=== PATIENT | male | born 1980 | race Caucasian/White ===

== ENCOUNTER 2024-02-25 19:08 | Inpatient (IN) | payer SELFPAY ==
[2024-02-25 19:27] VITALS: BP 126/81; PULSE 91; RESP 16; O2SAT 98; BMI 32.5
--- NOTE | 2024-02-25 20:08 | PC.NURSE ---
at person search patient requested to keep own underwear t/w searched by hand for contraband, returned to client.
--- NOTE | 2024-02-25 20:09 | PC.NURSE ---
patient had pile of folded papers he wanted to keep which t/w had concerns of exposing staff to hazards by the sheer number of folded papers inside, offered to have numbers copied and patient did not like this optiion. patient then asked to leave and the patient was told that since he had expressed SI the provider would have to dc.
--- NOTE | 2024-02-25 20:28 | ED_ITS ---
HPI - General Adult General Chief complaint: Psychiatric Symptoms Stated complaint: crisis Time Seen by Provider: 02/25/24 20:18 Source: patient Mode of arrival: ambulatory Limitations: no limitations History of Present Illness ED Provider: Betty WHITNEY HPI narrative: 43 year old M with psychiatric history presenting with concerns of suicidal ideation over the past 3 days following recent suicide of his mother. Pt is from [place] and has a few close friends there, but states his brother is incarcerated and his sister is not in contact with him. He admits to recent suicide attempt. Pt has been sober from alcohol for 23 years and smokes a pack of cigarettes/day, does not use drugs. 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 He is mainly concerned stating he does not want to miss a dose of his medications while here. Related Data Home Medications ?Medication ?Instructions ?Recorded ?Confirmed Seroquel 800 mg PO BEDTIME 02/25/24 02/25/24 atorvastatin 20 mg PO BEDTIME 02/25/24 02/25/24 prazosin 2 mg capsule 4 mg PO BEDTIME 02/25/24 02/25/24 trazodone 200 mg PO BEDTIME 02/25/24 02/25/24 Allergies Allergy/AdvReac Type Severity Reaction Status Date / Time diphenhydramine Allergy Itching Verified 02/25/24 19:33 [From Benadryl] fish derived [fish] Allergy Angioedema Verified 02/25/24 19:33 haloperidol [From Haldol] Allergy Angioedema Verified 02/25/24 19:33 hydroxyzine [From Vistaril] Allergy Itching Verified 02/25/24 19:33 ibuprofen Allergy Angioedema Verified 02/25/24 19:33 Iodinated Contrast Media Allergy Angioedema Verified 02/25/24 19:33 ketorolac [From Toradol] Allergy Angioedema Verified 02/25/24 19:33 mushroom Allergy Angioedema Verified 02/25/24 19:33 Penicillins Allergy Angioedema Verified 02/25/24 19:33 Review of Systems 2 Review of Systems: Yes all other systems are reviewed and are negative PMFSH Past Medical History Attestation statement: The following information was validated with the patient. Source: old records reviewed and nursing notes reviewed Social History Social History Smoked in Last 30 Days: No Use of substances other than those prescribed or required for medical reasons: No Advance Directives: No Advance Directives Information Provided: No Do you have a plan to hurt others: No Plan Physical Exam ED Vital Signs: Vital Signs - 24 hr 02/25/24 19:27 02/25/24 23:17 02/26/24 10:40 Temperature 97.7 F 97.9 F Pulse Rate 91 83 75 Respiratory Rate 16 17 14 Blood Pressure 126/81 153/85 H 109/71 Pulse Oximetry 98 97 95 Oxygen Delivery Method Room Air Room Air Room Air BMI result Body Mass Index 32.5 VSS Appearance: Alert.? Oriented X3.? No acute distress.? Head: Normocephalic, atraumatic, no step-offs or deformities Eyes: Pupils equal, round and reactive to light.? Neck: Normal inspection.? Neck supple.? CVS: Normal heart rate and rhythm.? Pulses normal.? Respiratory: No respiratory distress.? Breath sounds normal.? Abdomen: Soft and nontender.? Skin: Skin warm and dry.? Normal skin color.? Normal skin turgor.? Neuro: Oriented X 3.? No motor deficit.? No sensory deficit. CN 2-12 intact Course Reevaluation(s) Reevaluation #1: CBC unremarkable. Chemistry no acute findings needing intervention. Salicylates acetaminophen ethanol negative. Urine toxicology negative. At this time patient to be placed into observation to allow more time to be evaluated by behavioral health team. At time observation was started patient common cooperative no acute distress will continue to monitor Patient to be on a section 12 at this time for safety sign by doctors Yanet Time: 22:23 Reevaluation #2: Physician observation continued. no acute events overnight, VS stable. S12 inpatient bed search. REESE 02/26/24 725am Reevaluation #3: observation care revealed that the patient does meet psychiatric necessity for hospitalization. final disposition discussed with the patient. The patient completed observation care at 135pm REESE Medications Administered Generic Name Dose Route Start Last Admin Trade Name Freq PRN Reason Stop Dose Admin Atorvastatin Calcium 20 mg 02/25/24 23:15 02/25/24 23:40 Atorvastatin Calcium 20 Mg Tablet PO 20 mg BEDTIME DIMITRI Administration Prazosin HCl 4 mg 02/25/24 23:15 02/25/24 23:40 Prazosin Hcl 1 Mg Capsule PO 4 mg BEDTIME DIMITRI Administration Protocol Quetiapine Fumarate 800 mg 02/25/24 23:15 02/25/24 23:40 Quetiapine Fumarate 400 Mg Tablet PO 800 mg BEDTIME DIMITRI Administration Trazodone HCl 200 mg 02/25/24 23:15 02/25/24 23:40 Trazodone Hcl 100 Mg Tablet PO 200 mg BEDTIME DIMITRI Administration Medical Decision Making Medical Decision Making [facility] Narrative: 43 year old M presenting with concerns of suicidal ideation for past 3 days. PE - benign Hx and pe concerns for suicidal ideation vs depression vs anxiety. Unlikely schizophrenia, ptsd, drug intoxication. Do not suspect acute metabolic derangement Plan - labs, urine Differential Diagnosis Differential Diagnoses: The differential diagnosis associated with the presentation includes Hx and pe concerns for suicidal ideation vs depression vs anxiety. Unlikely schizophrenia, ptsd, drug intoxication. Do not suspect acute metabolic derangement Admission/Observation Consideration of admission/observation: Escalation of care including admission/observation considered No indication Lab Data [facility] Lab Attestation statement: I reviewed the patient's lab results. 02/25/24 20:52 02/25/24 20:52 Labs: Lab Results 02/25/24 02/25/24 Range/Units 20:39 20:52 WBC 5.2 (4.8-10.8) X10*3/uL RBC 5.06 (4.60-5.80) X10*6/uL Hgb 15.1 (14.0-18.0) g/dl Hct 42.7 (42.0-52.0) % MCV 84.4 (80.0-98.0) fL MCH 29.8 (27.0-33.0) pg MCHC 35.4 (31.0-36.0) g/dl RDW 12.9 (11.0-16.0) % Plt Count 179 (160-400) X10*3/uL MPV 10.1 (9.4-12.4) fL Immature Gran % (Auto) 0.4 (0.0-0.4) % Neut % (Auto) 61.2 (45-73) % Lymph % (Auto) 29.7 (20-40) % [place] % (Auto) 8.5 (2-11) % Eos % (Auto) 0.2 (0-4) % Baso % (Auto) 0.0 (0-2) % Lymph # (Auto) 1.5 (1.2-4.9) X10*3/uL [place] # (Auto) 0.4 (0.1-1.2) X10*3/uL Eos # (Auto) 0.0 (0.0-0.4) X10*3/uL Baso # (Auto) 0.0 (0.0-0.2) X10*3/uL Abs Immat Gran (auto) 0.02 (0.00-0.03) X10*3/uL Absolute Neuts (auto) 3.2 (2.0-8.3) x10*3/uL Absolute Nucleated RBC 0.000 (0.0-0.012) X10*3/uL Nucleated RBC % (auto) 0.0 (0.0-0.2) /100WBC Sodium 143 (135-145) mmol/L Potassium 4.0 (3.3-5.1) mmol/L Chloride 106 (96-108) mmol/L Carbon Dioxide 25 (22-29) mmol/L Anion Gap 16 (12-20) BUN 6 L (9-16) mg/dL Creatinine 1.05 (0.5-1.4) mg/dL Estim Creat Clear Calc 104.5 Estimated GFR > 60 Random Glucose 109 (60-115) mg/dL Calcium 10.1 (8.4-10.2) mg/dL Magnesium 2.0 (1.6-2.6) mg/dL Total Bilirubin 0.5 (0.0-1.0) mg/dL Direct Bilirubin 0.2 (0.0-0.5) mg/dL AST 18 (5-37) U/L ALT 27 (0-40) U/L Alkaline Phosphatase 74 (39-117) U/L Total Protein 7.4 (6.5-8.0) g/dL Albumin 4.6 (3.5-5.0) g/dL Salicylates < 5.0 L (15-30) mg/dL Urine Opiates Screen Not Detected (Not Detect) Ur Buprenorphine Scrn Not Detected (Not Detect) ng/mL Ur Oxycodone Screen Not Detected (Not Detect) ng/mL Urine Methadone Screen Not Detected (Not Detect) ng/mL Urine Fentanyl Screen Not Detected (Not Detect) Acetaminophen < 3 (<30) mcg/mL Ur Barbiturates Screen Not Detected (Not Detect) Ur Phencyclidine Scrn Not Detected (Not Detect) Ur Amphetamines Screen Not Detected (Not Detect) U Benzodiazepines Scrn Not Detected (Not Detect) Urine Cocaine Screen Not Detected (Not Detect) U Marijuana (THC) Screen Not Detected (Not Detect) Ethyl Alcohol < 10 mg/dL Discharge Plan Discharge Clinical Impression: Depression, Suicidal ideation Patient Disposition: Admitted As Inpatient Interventions: Gilbert-Suicide Risk Severity Scale Last Done: 02/25/24 23:47
[2024-02-25 20:57] LABS: MANUAL DIFF FLAG NO
[2024-02-25 20:59] LABS: Eosinophils Percent Auto 0.2 % (0-4); Hematocrit 42.7 % (42.0-52.0); Hemoglobin 15.1 g/dl (14.0-18.0); Imm Gran Abs Auto 0.02 X10*3/uL (0.00-0.03); Imm Gran Pct Auto 0.4 % (0.0-0.4); Lymphocytes Absolute Auto 1.5 X10*3/uL (1.2-4.9); Lymphocytes Percent Auto 29.7 % (20-40); Mean Corpuscular HGB Conc 35.4 g/dl (31.0-36.0); Mean Corpuscular Hemoglobin 29.8 pg (27.0-33.0); Mean Corpuscular Volume 84.4 fL (80.0-98.0); Mean Platelet Volume 10.1 fL (9.4-12.4); Monocytes Absolute Auto 0.4 X10*3/uL (0.1-1.2); Monocytes Percent Auto 8.5 % (2-11); Neutrophils Absolute Auto 3.2 x10*3/uL (2.0-8.3); Neutrophils Percent Auto 61.2 % (45-73); Platelet Count 179 X10*3/uL (160-400); Red Blood Count 5.06 X10*6/uL (4.60-5.80); Red Cell Distribution Width 12.9 % (11.0-16.0); White Blood Count 5.2 X10*3/uL (4.8-10.8)
[2024-02-25 21:02] LABS: Amphetamine Screen Urine Not Detected (Not Detect); Barbiturates, Urine Not Detected (Not Detect); Benzodiazepines Screen Urine Not Detected (Not Detect); Buprenorphine Scr Not Detected (Not Detect); Cannabinoid Screen Urine Not Detected (Not Detect); Cocaine Screen Urine Not Detected (Not Detect); Fentanyl, urine Not Detected (Not Detect); Methadone Screen, Urine Not Detected (Not Detect); Opiate Screen Urine Not Detected (Not Detect); Oxycodone Screen Urine Not Detected (Not Detect); Phencyclidine Screen Urine Not Detected (Not Detect)
[2024-02-25 21:26] LABS: Alanine Aminotransferase 27 U/L (0-40); Albumin Level 4.6 g/dL (3.5-5.0); Alkaline Phosphatase 74 U/L (39-117); Anion Gap 16 (12-20); Aspartate Amino Transferase 18 U/L (5-37); Bilirubin Direct 0.2 mg/dL (0.0-0.5); Bilirubin Total 0.5 mg/dL (0.0-1.0); Blood Urea Nitrogen 6 mg/dL (9-16); Calcium 10.1 mg/dL (8.4-10.2); Carbon Dioxide 25 mmol/L (22-29); Chloride 106 mmol/L (96-108); Creatinine Clr Calc Pharmacy 104.5; Estimated Glomerular Filt Rate > 60; Ethanol < 10 mg/dL; Glucose Random 109 mg/dL (60-115); Sodium 143 mmol/L (135-145); Total Protein 7.4 g/dL (6.5-8.0)
[2024-02-25 21:27] LABS: Acetaminophen LAB < 3 mcg/mL (<30); Salicylate < 5.0 mg/dL (15-30)
[2024-02-25 23:17] VITALS: BP 153/85; PULSE 83; RESP 17; TEMP 36.5; O2SAT 97
[2024-02-25] MEDS: Prazosin HCL 1 MG CAPSULE 4 MG PO (23:40)
[2024-02-25] MEDS: Atorvastatin Calcium 20 MG TABLET PO (23:40)
[2024-02-25] MEDS: traZODone HCL 100 MG TABLET 200 MG PO (23:40)
[2024-02-25] MEDS: QUEtiapine Fumarate 400 MG TABLET 800 MG PO (23:40)
--- NOTE | 2024-02-26 | ECG_ITS ---
Test Reason : RULE OUT PROLONG QTC Blood Pressure : / mmHG Vent. Rate : 056 BPM Atrial Rate : 056 BPM P-R Int : 154 ms QRS Dur : 138 ms QT Int : 434 ms P-R-T Axes : 040 041 033 degrees QTc Int : 418 ms Sinus bradycardia Non-specific intra-ventricular conduction block Minimal voltage criteria for LVH, may be normal variant ( [place] product ) Abnormal ECG No previous ECGs available Referred By: Iam Simmons Electronically Signed By:AMY AYON
--- NOTE | 2024-02-26 10:05 | PC.NURSE ---
Assumed care of patient at 0645, patient appears to be sleeping, respirations even and unlabored, no apparent distress noted. Continue plan of care for inpatient bedsearch
[2024-02-26 10:40] VITALS: BP 109/71; PULSE 75; RESP 14; TEMP 36.6; O2SAT 95
[2024-02-26 14:38] VITALS: BP 116/63; PULSE 77; RESP 16; TEMP 36.9; O2SAT 96
[2024-02-26 14:49] VITALS: BMI 35.2
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
--- OUTSIDE RECORDS SUMMARY | 2024-03-01 06:35 | XMS_ITS | Patient Health Record ---
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
--- OUTSIDE RECORDS SUMMARY | 2024-03-01 06:35 | XMS_ITS ---
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 Name Role Phone AA PHYSICIAN, NONSTAFF Primary Care Provider Sharon Elle Donnelly Unavailable [phone] REASON FOR VISIT Visit created for billing purposes Encounters Encounter Location Date Provider Diagnosis [facility] Emergency [address] [place] [address] 02/25/2024 Elle Steward Adjustment disorder with depressed mood F43.21 Assessments Encounter Date Diagnosis (ICD Code) Assessment Notes Treatment Notes Treatment Clinical Notes 02/25/2024 Adjustment disorder with depressed mood (ICD-10 - F43.21) Plan Of Treatment No Information Progress Notes * Ho HODGESDOB:1980 ( 43 yo M)Acc No.[id number]:02/25/2024 Progress Note Patient:?Ho HODGES Provider:?YELENA Jeronimo :1980???Age:43 Y???Sex:Male Vitaliy e:02/25/2024 Address:[address] [place], [place] [id number] Pcp:NONSTAFF AA PHYSICIAN Subjective: * Chief Complaints: * ???Visit created for billing purposes * Medical History:? * Medications:? Objective: * Vitals:? Assessment: * Assessment: 1.?Adjustment disorder with depressed mood - F43.21 (Primary)??? Plan: * Treatment: * Procedure Codes:?36559 PSYCH OTX CRISIS 1st 60 MIN * * Sign off status: Completed true * Provider:?YELENA Jeronimo Date:? Generated for Sidney king/Gerard/Carlos Enrique on:?03/01/2024 06:34 AM EDT
== END 2024-02-26 16:32 | disposition home or self-care (01) | DRG 885 ==
LOC: HO.ED 22:25 → HO.PADLT16 02-26 12:57
PROVIDERS: Physician Assistant; Admitting Provider Psychiatry & Neurology Psychiatry; Emergency Provider Emergency Medicine; Visit Provider Psychiatry & Neurology Psychiatry
DX: F39 Unspecified mood [affective] disorder (principal); R45.851 Suicidal ideations; F17.210 Nicotine dependence, cigarettes, uncomplicated; Z91.51 Personal history of suicidal behavior; Z63.4 Disappearance and death of family member; Z71.6 Tobacco abuse counseling; Z79.899 Other long term (current) drug therapy
CPT/HCPCS: 36415; 80048; 80076; 80143; 80179; 80307; 83735; 85025; 93005; 99285; S9485

== ENCOUNTER → 2024-02-26 12:43 | Outpatient (BNV) | payer SELFPAY | PROVIDERS: Admitting Provider Psychiatry & Neurology Psychiatry; Emergency Provider Emergency Medicine; Visit Provider Psychiatry & Neurology Psychiatry | DX: F60.2 Antisocial personality disorder (principal) | CPT/HCPCS: 99236; 99499 ==